=== PATIENT | female | born 2000 | race Caucasian/White ===

== ENCOUNTER 2023-09-18 09:58 | Emergency (ER) | payer OTHER, SELFPAY ==
[2023-09-18 10:18] VITALS: BP 91/74; PULSE 81; RESP 18; TEMP 36.4; O2SAT 100
--- NOTE | 2023-09-18 10:22 | ED.EAR ---
HPI - Ear Problem General Stated complaint: ear pain Time Seen by Provider: 09/18/23 10:20 Source: patient Mode of arrival: ambulatory Limitations: no limitations History of Present Illness HPI Narrative: Tatiana is a 22-year-old female patient presenting to the clinic today with complaints of bilateral ear pain x3 days. She denies any fever, sore throat, cough, runny nose, or congestion. Notices pain to her ears when swallowing and hearing a popping Review of Systems Review of Systems: Pertinent positives per HPI. Patient denies any fever, chills, rash, headache, visual changes, dizziness, cough, runny nose, sore throat, shortness of breath, chest pain, palpitations, nausea, vomiting, diarrhea, constipation, abdominal pain, or any urinary issues. PMFSH Comments At the time of my signature, I reviewed and agree with the nursing past medical, surgical, social, and family history. There is no relevant family history pertinent to the patient complaint. Exam Narrative: General: Well-developed, well nourished, in no apparent distress Head: Normocephalic, atraumatic Eyes: Pupils equally round and reactive to light bilaterally, EOM intact, sclera and conjunctive clear, no discharge, lids normal Ears: TMs intact, clear, mild bulging,, ear canals clear, no drainage, grossly hearing normal. Nose: Nares patent, no discharge, no inflammation, no sinus tenderness. Mouth: Oropharynx without lesions or masses, good dentition, MMM. Neck: Supple, trachea midline, no enlargement of anterior or posterior cervical nodes, no thyroid masses or goiter palpable. Cardio: Regular rate and rhythm, s1 and s2 normal, no murmur appreciated. Resp: Clear to auscultation bilaterally anteriorly and posteriorly, no rhonchi, rales, wheezing or rubs Course Course Emergency Course: Portions of this record may have been created with voice recognition software. Level of Care: Express Care Visit Vital Signs Vital signs: Vital Signs Temperature 36.4 C L 09/18/23 10:18 Pulse Rate 81 09/18/23 10:18 Respiratory Rate 18 09/18/23 10:18 Blood Pressure 91/74 L 09/18/23 10:18 Pulse Oximetry 100 09/18/23 10:18 Oxygen Delivery Room Air 09/18/23 10:18 Temperature 36.4 C L 09/18/23 10:18 Pulse Rate 81 09/18/23 10:18 Respiratory Rate 18 09/18/23 10:18 Blood Pressure 91/74 L 09/18/23 10:18 Pulse Oximetry 100 09/18/23 10:18 Oxygen Delivery Room Air 09/18/23 10:18 Vital signs reviewed Medical Decision Making MDM Narrative Medical decision making narrative: At the time of visit patient is resting comfortably on the exam table. Patient appears to be nontoxic. I suspect patient has bilateral eustachian tube dysfunction. Supportive measures were discussed with the patient and they voiced understanding discharge instructions and agrees to treatment plan. Return precautions reviewed Differential Diagnosis Differential Diagnosis: Otitis media, otitis externa, eustachian tube dysfunction, upper respiratory infection, cerumen impaction, serous otitis Vital Signs Vital Signs: Vital Signs Temperature 36.4 C L 09/18/23 10:18 Pulse Rate 81 09/18/23 10:18 Respiratory Rate 18 09/18/23 10:18 Blood Pressure 91/74 L 09/18/23 10:18 Pulse Oximetry 100 09/18/23 10:18 Oxygen Delivery Room Air 09/18/23 10:18 Temperature 36.4 C L 09/18/23 10:18 Pulse Rate 81 09/18/23 10:18 Respiratory Rate 18 09/18/23 10:18 Blood Pressure 91/74 L 09/18/23 10:18 Pulse Oximetry 100 09/18/23 10:18 Oxygen Delivery Room Air 09/18/23 10:18 Discharge Plan Discharge Clinical Impression: ETD (eustachian tube dysfunction) Qualifiers: Laterality: bilateral Qualified Code(s): H69.93 - Unspecified Eustachian tube disorder, bilateral Patient Disposition: Home, Self-Care Condition: Stable Instructions: Antibiotic Form, Earache (ED) Additional Instructions: Take prescription medications only as presc
== END 2023-09-18 10:30 | disposition home or self-care (01) ==
PROVIDERS: Emergency Provider Nurse Practitioner Family
DX: H69.93 Unspecified Eustachian tube disorder, bilateral (principal)
CPT/HCPCS: 99202; G0463

== ENCOUNTER 2024-11-08 08:01 | Outpatient (CLI) | payer OTHER, SELFPAY ==
--- OUTSIDE RECORDS SUMMARY | 2024-11-08 08:06 | XMS_ITS | Clinical Summary ---
Author Organization [facility] Address [facility] [place] [address] Care Team Providers Care Macaroni Press Operator Name Role Phone Meche Duffy MD Primary Care Provider [phone] Allergies Active Allergy Reactions Criticality Noted Date Comments Strawberries Unknown 11/18/2019 Medications Vit-Fe Fumarate-FA ( VITAMIN) 27-0.8 MG Tab Take 1 tablet by mouth daily. 90 tablet 3 0 Active ondansetron 4 MG disintegrating tablet Take 1 tablet (4 mg total) by mouth every 4 (four) hours as needed. 30 tablet 0 Active Social History Tobacco Use Types Packs/Day Years Used Date Smoking Tobacco: Never Smokeless Tobacco: Never Alcohol Use Standard Drinks/Week Comments Never 0 (1 standard drink = 0.6 oz pur e alcohol) AUDIT-C Answer Date Recorded Frequency of Alcohol Consumption Never 11/18/2019 Average Number of Drinks Not on file 020 Frequency of Binge Drinking Not on file 10/31 Comments Yes Sex and Gender Information Value Date Recorded Sex Assigned at Not on file Legal Sex Female 4:17 PM CDT Gender Identity Not on file Sexual Orientation Not on file Last Filed Vital Signs Vital Sign Reading Time Taken Comments Blood Pressure 113/63 11/19/2019 3:02 AM BUILDING CONSTRUCTION TEACHER Pulse 60 11/19/2019 3:02 AM BUILDING CONSTRUCTION TEACHER Temperature 36.8 C (98.2 F) 11/18/2019 7:57 PM BUILDING CONSTRUCTION TEACHER Respiratory Rate 18 11/19/2019 3:02 AM BUILDING CONSTRUCTION TEACHER Oxygen Saturation 99% 11/19/2019 3:02 AM BUILDING CONSTRUCTION TEACHER Inhaled Oxygen Concentration - - Weight 81.3 kg (179 lb 3.7 oz) 11/18/2019 7:57 P M BUILDING CONSTRUCTION TEACHER Height 170.2 cm (5' 7 ) 11/18/2019 7:57 PM BUILDING CONSTRUCTION TEACHER Body Mass Index 28.07 11/18/2019 7:57 PM BUILDING CONSTRUCTION TEACHER Plan of Treatment Health Maintenance Due Date Last Done Comments Cervical Cancer Screening Pap Smear (Age 21 to 29) Every 3 Years 1998 Cervical Cancer Screening 1998 Annual Physical 2001 Hepatitis C 2016 DTaP, Tdap and Td Vaccines (7 - Td or Tdap) 03/19/2023 03/19/2013, 05/03/2004, 06/27/2000, Additional history exists COVID-19 Vaccine (2023- season) 2024 Influenza Adult (#1) 2024 RSV Immunization or 60+ Years (1 - 1-dose 75+ series) 2073 Hepatitis B Vaccines Completed 06/26/1999, 02/27/1999, 1998 HPV Vaccines Completed 12/16/2012, 08/29, 06/22/2012 Meningococcal Vaccine Aged Out 05/02/2016 No demarcus gilberto eligible based on patient's age to complete this topic Meningococcal B Vaccine Aged Out No l onger eligible based on patient's age to complete this topic Pneumococcal Vaccine: Pediatrics (0 to 5 Years) and At-Risk Patients (6 to 64 Years) Aged Out No longer eligible based on patient's age to complete this topic RSV Immunizations Under 20 Months Aged Out No longer eligible based on patient's age to complete this topic Insurance [facility] Member Subscriber Plan / Payer (Ef fective 2017-Present) Name:Tatiana Perez Relation to Subscriber:Self Name:Tatiana Perez Payer ID:[id number] (NAIC) Type:Not on file Address: [facility] [id number] [place] [id number] MEDICAID Care Teams Macaroni Press Operator Relationship Specialty Start Date End Date Meche Duffy MD PCP - General FAMILY PRACTICE 11/18/19
--- OUTSIDE RECORDS SUMMARY | 2024-11-08 08:06 | XMS_ITS | Clinical Summary ---
Author Organization [facility] Address [address] [place] [address] Care Team Providers Care Porcelain Enameler Name Role Phone Shannon Ochoa Primary Care Provider + Kya White MD Unavailable Allergies Active Allergy Reactions Criticality Noted Date Comments [place] Unknown 11/21/2020 Medications No known medications Active Problems Problem Noted Date Diagnosed Date Mild episode of recurrent major depressive disor bibiana 11/21/2020 Assessment & Plan (12/19/2020 2:17 PM CDT): Improving Continue Prozac - advised may take at bedtime and see if improves fatigue more Assessment & Plan (11/21/2020 9:36 AM INSPECTOR GOLF BALL): New/Worsening Will start SSRI. Discussed with patient about common side effects of medication including potential for worsening symptoms or new/worsening suicidal thoughts. Should this occur, patient should stop the medication immediately and call/RTC or go to ER. Medications for depression/anxiety can take up to 4-6 weeks to reach maximum effectiveness in the body. Call office to report any concerning side effects or new/worsening symptoms. Encouraged to see counselor/therapist and/or psychiatrist. Patient given list of contact information of area psyche services Allergic rhinitis 08/08/2016 Resolved Problems Problem Noted Date Diagnosed Date Resolved Date Second 03/15/2022 03/16/2022 Normal labor 03/15/2022 03/16/2022 Overview (03/16/2022): 03/15/2022, 0330 (SK): 21-year-old at 38 weeks and 5 days presented with regular painful contractions, cervical change. Desires unmedicated labor and delivery FHT 140s, moderate variability, 10 x 10 accels Contractions every 3-4 minutes 10/100/0 - AROM clear Anticipate False labor after 37 complet ed weeks of gestation 03/13/2022 04/29/2022 Inevitable 09/26/2021 02/22/20 22 Vaginal bleeding in pregnanc y, second trimester 09/26/2021 02/21/2022 Urinary tract infection in m other during first trimester of 09/14/2021 02/21/2022 Supervision of other normal , antepartum 08/28/2021 03/16/2022 Overview (03/16/2022): EDC by LMP = 9 week ultrasound Labs: O+/I/-/-,NR Genetics:Panorama - LR Anatomy: complete, AGA normal GCT: 110 Tdap: completed GBS: negative Delivery Planning: desires 39 week IOL. AVERY/LLP resolved (12/27) Supervision of normal first , antepartum 11/19/2019 08/28/2021 Overview (06/07/2020): First Trimester: [x] Labs [x] Genetic Screeninnd Trimester: [x] Anatomy ultrasound 02/07/2020 3rd Trimester: [] CBC, HIV, syphilis screen [x] 1hr GCT (26-28wks): [x] Tdap (27-36wks) 04/03/2020 [] Rhogam (if Rh neg): [x] GBS Ringworm 10/29/2019 10/08/2022 Assessment & Plan (10/29/2019 12:50 PM INSPECTOR GOLF BALL): Order loprox cream Missed period 10/22/2019 11/19/2019 Assessment & Plan (10/22/2019 2:09 PM INSPECTOR GOLF BALL): Positive Positive test 10/22/2019 022 09/2019 Assessment & Plan (10/22/2019 2:09 PM INSPECTOR GOLF BALL): Order PNV Refer to OB Epigastric abdominal pain 10/22/2019 Assessment & Plan (10/22/2019 2:09 PM INSPECTOR GOLF BALL): Likely GERD vs gastritis Start pepcid Avoid fried, fatty foods Immunizations Name Administration Dates Next Due DTaP 5 Pertussis 05/03/2004, 0,06/26/1999,04/25/1999,0 02/27/1999 HPV, Unspecified 12/16/2012,09/14/2012, 2 Hep A, Unspecified 03/19/2013 Hep B, Unspecified 06/26/1999,02/27/1999, 999 HiB 06/27/2000,06/26/1999,04/25/1999 ,02/27/1999 IPV 05/03/2004,12/25/1999,04/25/1999 ,02/27/1999 Influenza, Unspecified 06/29/2022(Deferr ed: Patient Refused),06/29/2021(Deferred: Patient Refused),06/29/2020(Deferred: Patient Refused),12/08/2019(Deferred: Patient Refused),06/29/2018(Deferred: Patient Refused) MMR 05/03/2004,12/25/1999 Meningococcal MCV4P (Menactra) 05/02/2016 Tdap 03/05/2022,04/03/2020,03/19/2013 Varicella 05/19/2008,12/25/1999 Surgical History Surgery Date Site/Laterality Comments TEAR DUCT SURGERY Medical History Medical History Date Comments Anxiety Family History Medical History Relation Name Comments No Known Problems Brother No Known Problems Father Prostate cancer Maternal Grandfather Ovarian cancer Maternal Grandmother No Known Problems Mother Diabetes Mother's Sister Aunt No Known Problems Paternal Grandfather No Known Problems Paternal Grandmother Breast cancer Neg Hx Colon cancer Neg Hx Pancreatic cancer Neg Hx Uterine cancer Neg Hx Relation Name Status Comments Brother Alive Father Alive Maternal Grandfather Maternal Grandmother Alive Mother Alive Mother's Sister Aunt Paternal Grandfather Alive Paternal Grandmother Alive Social History Tobacco Use Types Packs/Day Years Used Date Smoking Tobacco: Never Smokeless Tobacco: Never Alcohol Use Standard Drinks/Week Comments Yes 0 (1 standard drink = 0.6 oz pur e alcohol) socially, prior to AUDIT-C Answer Date Recorded Q1: How often do you have a drink containing alcohol? Never 03/15/2022 Q2: How many drinks containi ng alcohol do you have on a typical day when you are drinking? Patient does not drink Q3: How often do you have si x or more drinks on one occasion? Never 03/15/2022 PHQ-2 Answer Date Recorded PHQ-2 Total Score (If total score is 3 or more points, staff should administer the PHQ-9) 0 02/12/2023 Gordon Depression Scale Answer Date Recorded Gordon Depression Scale Total 0 04/29/2022 The thought of harming myself has occurred to me . Never 04/29/2022 Personal Safety Answer Date Recorded Getting School Help Needed Not on file 01/04 Comments No Sex and Gender Information Value Date Recorded Sex Assigned at Not on file Legal Sex Female 7:48 PM INSPECTOR GOLF BALL Gender Identity Not on file Sexual Orientation Not on file Obstetrics History Para Term AB IAB SAB Ectopic Multiple Livin g Live Births 2 2 2 0 2 2 Date Outcome GA Total Labor Labor/2nd/3rd Weight Sex Type Anes PTL Madeline A1 A5 Name Clin 2019 Term 37w 2d 3.6 kg (7 lb 15 oz) M Vag-S pont None N Livin g Arlyn Cortes MD Complications:None Delivery [facility] 2021 Term 38w 5d 0h 24m 0h 21m/0h 03m 3.46 kg (7 lb 10.1 oz) M Vag-S pont Local N Livin g 8 9 MIO Jay,TWO Abelardo Cook MD Complications:Precipitous La bor (<3 hours) Delivery Location:[facility]) Last Filed Vital Signs Vital Sign Reading Time Taken Comments Blood Pressure 116/72 11/20/2023 3:04 PM INSPECTOR GOLF BALL Pulse 83 02/12/2023 3:47 PM CDT Temperature 36.6 C (97.8 F) 02/12/2023 3:47 PM CDT Respiratory Rate 18 02/12/2023 3:47 PM CDT Oxygen Saturation 99% 02/12/2023 3:47 PM CDT Inhaled Oxygen Concentration - - Weight 100.8 kg (222 lb 3.2 oz) 11/20/2023 3:04 PM INSPECTOR GOLF BALL Height 170.2 cm (5' 7 ) 11/20/2023 3:04 PM INSPECTOR GOLF BALL Body Mass Index 34.8 11/20/2023 3:04 PM INSPECTOR GOLF BALL Plan of Treatment Health Maintenance Due Date Last Done Comments Cervical Cancer Screening 08/14/2023 08/14/2022 Depression Screening 02/13/2024 02/12/2023, 10/08/2022, 04/29/2022, Additional history exists Regular Well Visit/Exam 18-64 11/20/2024 11/20/2023, 08/14/2022, 08/21/2021, Additional history exists DTaP/Tdap/Td Vaccine (9 - Td or Tdap) 03/05/2032 03/05/2022, 04/03/2020, 03/19/2013, Additional history exists Varicella Vaccines Completed 05/19/2008, 12/25/1999 HPV Vaccines Completed 12/16/2012, 08/29, 06/22/2012 Hepatitis C Screening Completed 08/21/2021, 020 Influenza Vaccine Discontinued Pneumococcal vaccine <65 Aged Out No longer eligible based on patient's age to complete this topic Procedures Procedure Name Priority Date/Time Associated Diagnosis Comments PAP WITH REFLEX TO HIGH RISK HPV Routine 08/14/2022 11:38 AM INSPECTOR GOLF BALL Well woman exam HEPATITIS C ANTIBODY Routine 08/21/2021 2:49 PM INSPECTOR GOLF BALL Missed menses from Last 3 Months or Most Recently Relevant to Health Maintenance Results * Pap with reflex to High Risk HPV (08/14/2022 11:38 AM INSPECTOR GOLF BALL) Thin prep (Pap test) 08/14/2022 11:38 AM INSPECTOR GOLF BALL 08/15/2022 11:38 AM INSPECTOR GOLF BALL Narrative PATHOLOGY [facility] - 08/20/2022 11:40 AM INSPECTOR GOLF BALL [facility] Department of Pathology [address] [place], [place] [id number] Final Report Note to Patients: This report may contain a detailed description of human tissue sent by a health care provider to the laboratory for pathologic evaluation. The content of this report is essential for diagnosis and may provide important critical findings. This information may be unfamiliar to patients to review without a medical professional present. It is advised that the patient review this report in the presence of a health care provider who can answer questions and explain the details. Patient Name: TATIANA PEREZ Address: [address] [place] [address] Gender: F : 2000 (Age: 21) Service: Location: [facility] : [id number] [facility] #: [id number] Patient Type: [facility] SPECIMEN Taken: 08/14/2022 Received: 08/15/2022 Accessioned:: 08/16/2022 Reported: 08/20/2022 Physician(s): Sara Cortes M.D. [facility] Diagnosis: Source of Specimen: Imaged Thinprep Pap Test w/ Reflex HPV - Real Estate Sales Associate Cytologic Material Specimen Adequacy: - Satisfactory for evaluation; endocervical/transformation zone component present General Category: - Negative for intraepithelial lesion or malignancy Interpretation/Results: - Numerous inflammatory cells present ROXANA Hicks(ASCP) Report Electronically Reviewed and Signed Out By ROXANA Hicks(ASCP) 08/20/2022 11:40:31Specimen(s) Received: A: Imaged Thinprep Pap Test w/ Reflex HPV - Real Estate Sales Associate Cytologic Material Clinical History: Last Menstrual Period: 07/25/22 Menstrual History: Clinical History: 2019 The Pap test is a screening test used to aid in the detection of cervical cancer and its precursors. It should not be the sole means by which malignant and premalignant lesions are diagnosed. Both false negative and false positive results may occur. It also has poor sensitivity for the detection of endometrial lesions and should not be used to evaluate suspected endometrial abnormalities. For these reasons it is most important to obtain Pap tests at regular intervals. The performance characteristics of some immunohistochemical stains, fluorescence in-situ hybridization tests and immunophenotyping by flow cytometry cited in this report (if any) were determined by the Surgical Pathology Department at [facility] as part of an ongoing quality control lead program and in compliance with federally mandated regulations drawn from the Clinical Laboratory Improvement Act of 1988 (CLIA '88). Some of these tests rely on the use of analyte specific reagents and are subject to specific labeling requirements by the US Food and Drug Administration. Such diagnostic tests may only be performed in a facility that is certified by the Department of Health and Human Services as a high complexity laboratory under CLIA '88. The FDA has determined that such clearance or approval is not necessary. This test is used for clinical purposes. It should not be regarded as investigational or for research. Nevertheless, federal rules concerning the medical use of analyte specific reagents require that the following disclaimer be attached to the report: This test was developed and its performance characteristics determined by the Surgical Pathology Department [facility]. It has not been cleared or approved by the U. S. Food and Drug Administration. Sara Cortes MD LAB CYTOLOGY ORDERABLES Final Result Performing Organization Address City/[facility]/ZIP Co de Phone Number PATHOLOGY [facility] * Hepatitis C antibody (08/21/2021 2:49 PM INSPECTOR GOLF BALL) Hep C Ab Nonreactive Nonreactive [facility]EN RESENDEZ Comment: Interpretive Data Nonreactive: Antibodies to HCV not detected. Does NOT exclude the possibility of recent exposure to HCV. Equivocal: Equivocal for HCV antibodies. Supplemental molecular testing will be automatically performed to determine infection status in accordance with current CDC screening recommendations. Reactive: Positive for HCV antibodies. This may represent current or past HCV infection. Supplemental molecular testing will be automatically performed to determine current infection status in accordance with current CDC screening recommendations. Interpretive data was last revised on 2019. Blood 08/21/2021 2:49 PM INSPECTOR GOLF BALL 08/21/2021 6:55 PM INSPECTOR GOLF BALL Sara Cortes MD LAB MICROBIOLOGY - GENERAL ORD ERABLES Final Result [facility]RIEN RESENDEZ [id number] [facility] Department [place] [address] from Last 3 Months or Most Recently Relevant to Health Maintenance Insurance [facility] Advance Directives For more information, please contact: [phone] * Full Code (Latest Code Status on File) Date Activated Date Inactivated Comments 03/15/2022 4:36 AM 03/16/2022 7:02 PM Full CPR in case of cardiopulmonary arrest * Full Code Date Activated Date Inactivated Comments 03/15/2022 4:34 AM 03/15/2022 4:36 AM * Full Code Date Activated Date Inactivated Comments 03/15/2022 3:09 AM 03/15/2022 4:34 AM Full CPR in case of cardiopulmonary arrest * Full Code Date Activated Date Inactivated Comments 03/13/2022 12:38 AM 03/13/2022 5:06 PM Full CPR in case of cardiopulmonary arrest * Full Code Date Activated Date Inactivated Comments 09/26/2021 9:14 AM 09/27/2021 4:07 PM Care Teams Porcelain Enameler Relationship Specialty Start Date End Date Shannon Ochoa PA PCP - General Family Medicine 11/20/20 Kya White MD Consulting Physician Obstetrics and Gynecology 09/27/21
--- OUTSIDE RECORDS SUMMARY | 2024-11-08 08:06 | XMS_ITS | Referral Summary ---
Author Organization [facility] Address [address] [place] [address] Care Team Providers Care Equipment Associate Name Role Phone Shannon Ochoa Primary Care Provider + Kya White MD Unavailable Allergies Active Allergy Reactions Criticality Noted Date Comments [place] Unknown 11/21/2020 Medications No known medications Active Problems Problem Noted Date Diagnosed Date Mild episode of recurrent major depressive disor bibiana 11/21/2020 Assessment & Plan (12/19/2020 2:17 PM CDT): Improving Continue Prozac - advised may take at bedtime and see if improves fatigue more Assessment & Plan (11/21/2020 9:36 AM MILK BOTTLING MACHINE OPERATOR): New/Worsening Will start SSRI. Discussed with patient [...] 10/08/2022 Assessment & Plan (10/29/2019 12:50 PM MILK BOTTLING MACHINE OPERATOR): Order loprox cream Missed period 10/22/2019 11/19/2019 Assessment & Plan (10/22/2019 2:09 PM MILK BOTTLING MACHINE OPERATOR): Positive Positive test 10/22/2019 02/2 09/2019 Assessment & Plan (10/22/2019 2:09 PM MILK BOTTLING MACHINE OPERATOR): Order PNV Refer to OB Epigastric abdominal pain 10/22/2019 Assessment & Plan (10/22/2019 2:09 PM MILK BOTTLING MACHINE OPERATOR): Likely GERD vs gastritis Start pepcid Avoid [...] MCV4P (Menactra) 05/02/2016 Tdap 03/05/2022,04/03/2020,03/19/2013 Varicella 05/19/2008,12/25/1999 Social History Tobacco Use Types Packs/Day Years [...] staff should administer the PHQ-9) 0 02/12/2023 Parshall Depression Scale Answer Date Recorded Parshall Depression Scale Total 0 04/29/2022 The thought of harming myself has occurred to me . Never 04/29/2022 Personal Safety Answer Date Recorded Getting School Help Needed Not on file 01/04 Comments No Sex and Gender Information Value Date Recorded Sex Assigned at Not on file Legal Sex Female 7:48 PM MILK BOTTLING MACHINE OPERATOR Gender Identity Not on file Sexual Orientation Not on file Last Filed Vital Signs Vital Sign Reading Time Taken Comments Blood Pressure 116/72 11/20/2023 3:04 PM MILK BOTTLING MACHINE OPERATOR Pulse 83 02/12/2023 3:47 PM CDT Temperature 36.6 C (97.8 F) 02/12/2023 3:47 PM CDT Respiratory Rate 18 02/12/2023 3:47 PM CDT Oxygen Saturation 99% 02/12/2023 3:47 PM CDT Inhaled Oxygen Concentration - - Weight 100.8 kg (222 lb 3.2 oz) 11/20/2023 3:04 PM MILK BOTTLING MACHINE OPERATOR Height 170.2 cm (5' 7 ) 11/20/2023 3:04 PM MILK BOTTLING MACHINE OPERATOR Body Mass Index 34.8 11/20/2023 3:04 PM MILK BOTTLING MACHINE OPERATOR Plan of Treatment Not on file Procedures Procedure Name Priority Date/Time Associated Diagnosis Comments PAP WITH REFLEX TO HIGH RISK HPV Routine 08/14/2022 11:38 AM MILK BOTTLING MACHINE OPERATOR Well woman exam HEPATITIS C ANTIBODY Routine 08/21/2021 2:49 PM MILK BOTTLING MACHINE OPERATOR Missed menses from Last 3 Months or Most Recently Relevant to Health Maintenance Results * Pap with reflex to High Risk HPV (08/14/2022 11:38 AM MILK BOTTLING MACHINE OPERATOR) Thin prep (Pap test) 08/14/2022 11:38 AM MILK BOTTLING MACHINE OPERATOR 08/15/2022 11:38 AM MILK BOTTLING MACHINE OPERATOR Narrative PATHOLOGY [facility] - 08/20/2022 11:40 AM MILK BOTTLING MACHINE OPERATOR [facility] Department of Pathology [address] [place] [id number] Final Report Note to Patients: This report [...] questions and explain the details. Patient Name: DEIDRA PEREZ Address: [address] [place] [address] Gender: F : 2000 (Age: 21) Service: Location: [facility] : [id number] [facility] #: [id number] Patient Type: [facility] SPECIMEN Taken: 08/14/2022 Received: 08/15/2022 Accessioned:: 08/16/2022 Reported: 08/20/2022 Physician(s): Sara Cortes M.D. [facility] Diagnosis: Source of Specimen: Imaged Thinprep Pap Test w/ Reflex HPV - Telecommunications Officer Cytologic Material Specimen Adequacy: - Satisfactory for evaluation; endocervical/transformation zone component present General Category: - Negative for intraepithelial lesion or malignancy Interpretation/Results: - Numerous inflammatory cells present ROXANA Hicks(ASCP) Report Electronically Reviewed and Signed Out By ROXANA Hicks(ASCP) 08/20/2022 11:40:31Specimen(s) Received: A: Imaged Thinprep Pap Test w/ Reflex HPV - Telecommunications Officer Cytologic Material Clinical History: Last Menstrual Period: [...] determined by the Surgical Pathology Department at [facility] as part of an ongoing software quality test engineer program and in compliance with federally mandated [...] characteristics determined by the Surgical Pathology Department [facility]. It has not been cleared or approved by the U. S. Food and Drug Administration. Sara Cortes MD LAB CYTOLOGY ORDERABLES Final Result PATHOLOGY [facility] * Hepatitis C antibody (08/21/2021 2:49 PM MILK BOTTLING MACHINE OPERATOR) Hep C Ab Nonreactive Nonreactive BRIEN RESENDEZ [...] revised on 2019. Blood 08/21/2021 2:49 PM MILK BOTTLING MACHINE OPERATOR 08/21/2021 6:55 PM MILK BOTTLING MACHINE OPERATOR Sara Cortes MD LAB MICROBIOLOGY - GENERAL ORD ERABLES Final Result BRIEN RESENDEZ [address] [facility] Department [place] [address] from Last 3 Months or Most Recently Relevant to Health Maintenance Insurance [facility] Advance Directives For more information, please contact: [phone] * Full Code (Latest Code Status on [...] 9:14 AM 09/27/2021 4:07 PM Care Teams Equipment Associate Relationship Specialty Start Date End Date Shannon Ochoa PA PCP - General Family Medicine 11/20/20 Kya White MD Consulting Physician Obstetrics and Gynecology 09/27/21
--- OUTSIDE RECORDS SUMMARY | 2024-11-08 08:06 | XMS_ITS | Patient Health Summary ---
Author Organization [facility] Address [address] [facility] [place] [address] Care Team Providers Care Audit Machine Operator Name Role Phone Meche Fonseca MD Primary Care Provider [phone] Note from [facility],non-owned Affiliates and Associated Physician Practices is amultiple site organization consisting of ambulatory clinics and hospital sitesin [place], [place], [place] and [place]. This disclosure is being madepursuant to the Care Everywhere program and may not contain all information available regarding this patient. Last updated 18.[facility] [employer] Allergies No known active allergies Medications Be aware that medications may not be up to date on this document. Always verify current medications with the patient. No known medications Social History Tobacco Use Types Packs/Day Years Used Date Smoking Tobacco: Never Smokeless Tobacco: Never Alcohol Use Standard Drinks/Week Comments Yes 0 (1 standard drink = 0.6 oz pur e alcohol) socially Sex and Gender Information Value Date Recorded Sex Assigned at Not on file Gender Identity Not on file Sexual Orientation Not on file Last Filed Vital Signs Vital Sign Reading Time Taken Comments Blood Pressure 114/62 01/13/2019 10:02 AM CDT Pulse 74 01/13/2019 10:02 AM CDT Temperature 36.6 C (97.8 F) 01/13/2019 10:02 AM CDT Respiratory Rate 16 01/13/2019 10:02 AM CDT Oxygen Saturation 97% 01/13/2019 10:02 AM CDT Inhaled Oxygen Concentration - - Weight 79.4 kg (175 lb) 01/13/2019 10:02 AM CDT Height 170.2 cm (5' 7 ) 01/13/2019 10:02 AM CDT Body Mass Index 27.41 01/13/2019 10:02 AM CDT Procedures * CULTURE URINE(Performed 01/13/2019) Performed for Acute cystitis without hematuria * URINALYSIS AUTO - POINT OF CARE (AMB) STL(Performed 01/13/2019) Performed for Acute cystitis without hematuria * STREP A SCREEN - POINT OF CARE (AMB) STL(Performed 11/26/2018) Performed for Influenza A * INFLUENZA A+B - POINT OF CARE (AMB)(Performed 11/26/2018) Performed for Influenza A Results * CULTURE URINE (01/13/2019 10:21 AM CDT) Pathologist [facility] Urine Culture Routine Final report [facility] INSURANCE BILL Result [facility] Comment: Culture shows less than 10,000 colony forming units of bacteria per milliliter of urine. This colony count is not generally considered to be clinically significant. Urine URINE SPECIMEN OBTAINED BY CLEAN CATCH PROCEDURE / Unknown 01/13/2019 10:21 AM CDT 01/13/2019 Narrative Resulting Agency Comment Lab Testing performed at: [facility] [address] [facility] [id number] Tonya Fowler APRN-DRY WALL PLASTERER LAB - MICR OBIOLOGY ORDERABLES [facility] INSURANCE BILL [address] [place] [address] * (ABNORMAL) URINALYSIS AUTO - POINT OF CARE (AMB) STL (01/13/2019 10:14 AM CDT) Pathologist [facility] Clarity UA POCT clear Color UA POCT yellow Leukocyte UA 15+ Negative Nitrite UA POCT negative Negative Urobilinogen UA 0.2 0.1 - 1.0 Protein UA POCT 15+ Negative pH UA 6.5 5.0 - 8.0 pH units Blood UA negative Negative Specific [place] UA POCT 1.005 1.002 - 1.030 Ketone UA negative Negative Bilirubin UA POCT negative Negative Glucose UA negative Negative Expiration Date 05/12/2020 Lot # [id number] Verified Yes Yes Urine URINE / Unknown 01/13/2019 1 0:14 AM CDT Tonya Fowler MEDIA PROMOTER-DRY WALL PLASTERER LAB - POIN T OF CARE ORDERABLES * STREP A SCREEN - POINT OF CARE (AMB) STL (11/26/2018 10:25 AM WELT SOLE LAYER) Strep A Rapid POCT Negative Negative Strep A Internal Control Present Lot # [id number] Expiration Date [id number] Throat ENTIRE THROAT (SURFACE REGION OF NECK) / Unknown 11/26/2018 10:25 AM WELT SOLE LAYER Marce Alvarado Nelida MEDIA PROMOTER-DRY WALL PLASTERER LAB - POINT OF CARE ORDERABLES * (ABNORMAL) INFLUENZA A+B - POINT OF CARE (AMB) (11/26/2018 10:20 AM WELT SOLE LAYER) Influenza A Antigen Rapid Positive(A) Negative Influenza B Antigen Rapid Negative Negative Influenza Internal Control present NEGATIVE - POSITIVE Influenza Lot Number [id number] Influenza Expiration Date Other NASOPHARYNGEAL SWAB / Unknown 11/26/2018 10:20 AM WELT SOLE LAYER Marce Fieldf MEDIA PROMOTER-DRY WALL PLASTERER LAB - POINT OF CARE ORDERABLES Care Teams Audit Machine Operator Relationship Specialty Start Date End Date Meche Fonseca MD [address] [place] [id number] PCP - General Family Medicine 11/26/18
--- OUTSIDE RECORDS SUMMARY | 2024-11-08 08:06 | XMS_ITS | Referral Summary ---
Author Organization [facility] Address [address] [place] [address] Care Team Providers Care Rental Boats Caretaker Name Role Phone Meche Fonseca MD Primary Care Provider [phone] Source Comments [facility],non-owned Affiliates and Associated Physician Practices is amultiple site organization consisting of ambulatory clinics and hospital sitesin [place], [place], [place] and [place]. This disclosure is being madepursuant to the Care Everywhere program and may not contain all information available regarding this patient. Last updated 18.[facility] [employer] Allergies No known active allergies Medications Be [...] Mass Index 27.41 01/13/2019 10:02 AM CDT Plan of Treatment Not on file Care Teams Rental Boats Caretaker Relationship Specialty Start Date End Date Meche Fonseca MD [address] [facility] [address] [phone] PCP - General Family Medicine 11/26/18
--- OUTSIDE RECORDS SUMMARY | 2024-11-08 08:06 | XMS_ITS | Clinical Summary ---
Author Organization [facility] Address [address] [facility] [place] [address] Care Team Providers Care Lab Engineer Name Role Phone Meche Fonseca MD Primary Care Provider [phone] Source Comments [facility],non-owned Affiliates and Associated Physician Practices is amultiple site organization consisting of ambulatory clinics and hospital sitesin [place], [place], [place] and [place]. This disclosure is being madepursuant to the Care Everywhere program and may not contain all information available regarding this patient. Last updated 18.[facility] Allergies No known active allergies Medications Be aware that medications may not be up to date on this document. Always verify current medications with the patient. No known medications Family History Medical History Relation Name Comments Diabetes - Type 2 Maternal Grandfather Cancer - Uterine Maternal Grandmother Relation Name Status Comments Father Alive Maternal Grandfather Maternal Grandmother Alive Mother Alive Social History Tobacco Use Types Packs/Day [...] 01/13/2019 10:02 AM CDT Plan of Treatment Health Maintenance Due Date Last Done Comments PAP SMEAR 2000 HIV SCREENING 2013 HPV VACCINE (1 - 3-dose series) 2013 CHLAMYDIA/GONORRHEA SCREENING 2014 HEPATITIS C SCREENING 12/17/2016 DTAP/TDAP/TD VACCINES (1 - Tdap) 2017 HEPATITIS B VACCINE (1 of 3 - 19+ 3-dose series) 2017 COVID-19 VACCINE (1 - 2023-2 5 season) 2024 INFLUENZA VACCINE (#1) 2024 DEPRESSION SCREENING 09/29/2024 ZOSTER VACCINE (1 of 2) 2048 HIB VACCINE Aged Out No longer eligi ble based on patient's age to complete this topic MENINGOCOCCAL (Group B) VACCINE Aged Out No longer eligible based on patient's age to complete this topic MENINGOCOCCAL VACCINE Aged Out No demarcus gilberto eligible based on patient's age to complete this topic PNEUMOCOCCAL VACCINE Aged Out No long er eligible based on patient's age to complete this topic Care Teams Lab Engineer Relationship Specialty Start Date End Date Meche Fonseca MD [address] [place] [address] PCP - General Family Medicine 11/26/18
[2024-11-08 08:53] LABS: Hematocrit 46.3 % (37.0-47.0); Hemoglobin 14.9 g/dL (12.0-15.0); Mean Corpuscular HGB Conc 32.2 g/dl (32-36); Mean Corpuscular Hemoglobin 26.8 pg (26-34); Mean Corpuscular Volume 83.1 fl (80-100); Mean Platelet Volume 9.4 fl (7.4-10.4); Platelet Count Result 248 k/mm3 (150-375); Red Blood Count 5.57 M/mm3 (4.2-5.4); Red Cell Distribution Width 13.2 % (11.5-14.5); White Blood Count 5.4 K/mm3 (4.5-10.0)
[2024-11-08 09:09] LABS: Alanine Aminotransferase 17 U/L (6-35); Albumin Level 4.4 g/dL (3.5-5.1); Alkaline Phosphatase 73 U/L (38-126); Anion Gap 11 mmol/L (4-12); Aspartate Amino Transferase 20 U/L (14-36); Bilirubin,Total 0.6 mg/dL (0.2-1.3); Blood Urea Nitrogen 15 mg/dL (7-17); Calcium 9.3 mg/dL (8.4-10.2); Carbon Dioxide 27 mmol/L (22-30); Chloride 102 mmol/L (98-107); Cholesterol 196 mg/dL (0-200); Estimated Glomerular Filt Rate > 60; Glucose 99 mg/dL (65-110); HDL Direct 50 mg/dL; Potassium 4.2 mmol/L (3.4-5.0); Sodium 140 mmol/L (137-145); Triglycerides 95 mg/dL (<150)
[2024-11-08 09:19] LABS: LDL Cholesterol Direct 106 mg/dL
[2024-11-08 09:22] LABS: Vitamin D 25 Hydroxy 25.6 ng/mL
== END 2024-11-08 08:02 | disposition home or self-care (01) ==
PROVIDERS: PCP Family Medicine; Visit Provider Nurse Practitioner Family
DX: R63.5 Abnormal weight gain (principal); E55.9 Vitamin D deficiency, unspecified; Z13.220 Encounter for screening for lipoid disorders
CPT/HCPCS: 36415; 80053; 80061; 82306; 84443; 85027